=== PATIENT | female | born 1990 | race Caucasian/White ===

== ENCOUNTER 2020-05-18 15:35 | Emergency (ER) | payer OTHER, SELFPAY ==
[2020-05-18 15:37] VITALS: RESP 17
[2020-05-18 15:42] VITALS: BP 138/92; PULSE 102; RESP 17; O2SAT 98
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
[2020-05-18] MEDS: TETANUS,DIPHTHERIA,AC PERTUSSIS ADULT (0.5 ML) BOOSTRIX IM (16:04)
== END 2020-05-18 17:50 | disposition home or self-care (01) ==
PROVIDERS: Emergency Provider Emergency Medicine
DX: S01.81XA Laceration without foreign body of other part of head, initial encounter (principal); Y04.2XXA Assault by strike against or bumped into by another person, initial encounter; Z23 Encounter for immunization
CPT/HCPCS: 90471; 90715; 99282